=== PATIENT | female | born 1985 | race Asian ===

== ENCOUNTER 2016-11-04 19:01 | Emergency (ER) | payer OTHER ==
[~2016-11-04] VITALS: Ht 167.6 cm; Wt 89.4 kg
[~2016-11-04 19:01] MED LIST: ACET500C5 PO; AZIT250T94 PO; BEN25 PO; CEPH-443 PO; D-ME473S18 PO; ERYT1OIN6 BOTH EYES; HYDR-3498 PO; IBUP-1542 PO; NAPR-260 PO; NITR-58 PO; ONDA4TAB14 PO; PRED50TA PO
[2016-11-04 19:09] VITALS: Ht 167.6 cm; Wt 89.4 kg
--- NOTE | 2016-11-04 20:14 | ERD ---
ER Documentation Chief Complaint Date/Time DATE: 11/04/16 TIME: 20:08 Chief Complaint l leg pain for past week, also co cough, runny nose HPI 31 y/o female presents to ED for left leg pain for more than a week. Pain was described as sharp that starts on her "left butt that extends down to my left lower leg." She also complains of productive cough and congestion for less than a week. Denies headache, loss of consciousness, dizziness, blurry vision, changes in vision, photophobia, ear pain, throat pain, difficulty swallowing, neck pain, shoulder pain, chest pain, cough, hemoptysis, abdominal pain, back pain, loss of appetite, nausea, vomiting, hematochezia, diarrhea, constipation, urinary symptoms, , the possibility of being , bladder and bowel incontinences, extremity weakness, extremity tenderness, numbness or tingling sensation, difficulty walking, injury/falls, trauma, recent travel, recent exposure to illness, recent antibiotic use in the last 3 months, fever, chills. Allergy: NKA PMH: Hypertension. Family medical history: Denies family history of cardiac disease, heart attack before the age of 50, sudden before age 50, stroke, high cholesterol. AO LMP: 10/25/2016 Medications: Hydrochlorothiazide. Stated that she did not take her dose today. Surgery: Denies. Primary Social History: Works as a STERILIZER OPERATOR. Denies smoking, use of alcohol, use of illegal drugs. ROS All systems reviewed and are negative except as per history of present illness. Medications Home Meds Active Scripts Cyclobenzaprine Hcl* (Cyclobenzaprine Hcl*) 10 Mg Tablet, 10 MG PO TID, #15 TAB Prov:NADEEM STEPHENSON F 11/04/16 Ibuprofen* (Motrin*) 800 Mg Tab, 800 MG PO Q6H Y for PAIN AND OR ELEVATED TEMP, #30 TAB Prov:SARWATILANADEEM SEVILLA F 11/04/16 Amoxicillin/Potassium Clav (Amox-Clav 875-125 mg Tablet) 875-125 mg Tab, 1 TAB PO BID for 7 Days, #14 TAB Prov:NADEEM STEPHENSON F 11/04/16 Acetaminophen* (Tylophen*) 500 Mg Capsule, 2 CAP PO Q8H Y for PAIN AND OR ELEVATED TEMP, #20 CAP Prov:JORGE GARCIA 09/07/16 Dextromethorphan Hb-Promethazine Hcl (Promethazine DM Syrup) 473 Ml Syrup, 5 ML PO Q6 Y for COUGH for 3 Days, ML Prov:JORGE GARCIA Nelida 09/07/16 Azithromycin* (Zithromax*) 250 Mg Tablet, 250 MG PO .ZPACK DIRECTED, #6 TAB TAKE 500 MG (2 TABS) THE FIRST DAY THEN 250 MG (1 TAB) DAYS 2-5 Prov:JORGE GARCIA 09/07/16 Ondansetron (Ondansetron Odt) 4 Mg Tab.rapdis, 4 MG PO Q6H Y for NAUSEA AND/OR VOMITING, #10 TAB Prov:AMI COLIN PA-C 08/09/16 Cephalexin* (Keflex*) 500 Mg Capsule, 500 MG PO QID for 7 Days, CAP Prov:AMI COLIN PA-C 08/09/16 Nitrofurantoin Monohyd Macrocr* (Macrobid*) 100 Mg Capsr, 100 MG PO BID for 14 Days, CAP Prov:MIRIAN LIZARRAGA PA-C 07/07/16 Ibuprofen* (Motrin*) 600 Mg Tab, 600 MG PO Q6, #30 TAB Prov:MIRIAN LIZARRAGA PA-C 07/07/16 Erythromycin (Erythromycin Opth) 3.5 Gm Oint..gm., 1 APPLIC BOTH EYES QID for 7 Days, EA Prov:DINAH JUNE PA-C 01/23/16 Prednisone* (Prednisone*) 50 Mg Tablet, 50 MG PO DAILY, #5 TAB Prov:DINAH JUNE PA-C 01/08/16 Diphenhydramine Hcl* (Benadryl*) 25 Mg Cap, 25 MG PO Q6, #30 CAP Prov:DINAH JUNE PA-C 01/08/16 Naproxen* (Naprosyn*) 500 Mg Tablet, 500 MG PO BID Y for PAIN AND/OR INFLAMMATION, #30 TAB Prov:MIRIAN LIZARRAGA PA-C 12/17/15 Hydrocodone Bit-Acetaminophen* ([place]*) 5-325 Mg Tab, 1 TAB PO Q6 Y for PAIN, # 7 TAB Prov:MIRIAN LIZARRAGA PA-C 12/17/15 Ibuprofen* (Motrin*) 600 Mg Tab, 600 MG PO TID, #30 TAB Prov:ANA REYNOSO MD 11/08/15 Allergies Allergies: Coded Allergies: No Known Allergy (Unverified , 01/23/16) PMhx/Soc History of Surgery: No Anesthesia Reaction: No Hx Neurological Disorder: No Hx Respiratory Disorders: No Hx Cardiac Disorders: Yes (HTN) Hx Psychiatric Problems: No Hx Miscellaneous Medical Probl: Yes (Inguinal hernia) Hx Alcohol Use: No Hx Substance Use: No Hx Tobacco Use: No Physical Exam Vitals Vital Signs Date Time Temp Pulse Resp B/P Pulse Ox O2 Delivery O2 Flow Rate FiO2 11/04/16 21:02 98.1 80 17 190/80 98 Room Air 11/04/16 19:09 98.3 77 18 144/84 98 Physical Exam CONSTITUTIONAL: Well-appearing; well-nourished; in no apparent distress. HEAD: Normocephalic; atraumatic. EYES: Conjunctiva clear, sclera non-icteric, EOM intact. PERRL. No pain on eye movement. Ears: Hearing intact. EACs clear, TMs non-bulging, non-inflamed, translucent & mobile, ossicles normal appearance, No obstructions, no erythema, no discharges Nose: No obstructions. No polyps. No external lesions. Mucosa inflamed. No external lesions, septum and turbinates normal. No rhinorrhea. No discharges. Frontal sinus is tender to palpation. Maxillary sinus is tender to palpation. MOUTH: Moist mucous membranes, no lesion, no obstructions, no vesicles, no thrush, patent airway Throat: Uvula in midline. Right tonsil is +2 with erythema, no exudate. Left tonsil is +2 with erythema, no exudate. Tolerating secretions well. Good gag reflex. Patent airway. Neck: Supple, without lesions, bruits, or adenopathy. No mass. Thyroid non- enlarged and non-tender to palpation. Good and full range of motion of neck and spine without pain and discomfort. CHEST: Symmetrical chest. Respirations even and not labored. No retractions noted. CARDIOVASCULAR: Normal S1, S2. RRR. No murmurs, gallops. RESPIRATORY: Normal chest excursion with respiration; breath sounds clear and equal bilaterally; no wheezes, rhonchi, or rales. Breathing even and unlabored. Speaking in clear, full, and complete sentences w/ ease. ABDOMEN: Normal bowel sounds normal. Soft, round, non-distended, non-guarding, no tenderness, no rebound, no organomegaly, no masses, no pulsating abdominal mass. No hernia. No peritoneal signs. : No CVA tenderness. BACK: Symmetrical shoulder. Spine is midline without deformity, tenderness. No evidence of trauma or deformity. PELVIS: Stable pelvis. No evidence of trauma or deformity. MUSCULOSKELETAL: Normal gait and station. No misalignment, asymmetry, crepitation, defects, tenderness, masses, effusions, decreased range of motion, instability, atrophy or abnormal strength or tone in the head, neck, spine, ribs , pelvis or extremities. Left straight leg test is positive. Left cross/ straight leg test is positive. Right straight leg test is negative. Right cross/straight leg test is negative. No neurovascular deficits. No calf tenderness. NEUROVASCULAR: Distal pulses are present. Pedal pulse are present, equal, and normal. Capillary refills are < 2 seconds. NEUROLOGIC: Alert and oriented x4. Speaks full and clear sentences. Cranial Nerves II-XII normal. Sensation to pain, touch, and proprioception normal. Grossly unremarkable. No neurologic deficits. Romberg test is negative. PSYCHOLOGICAL: The patients mood and manner are appropriate. No hallucinations , delusions. Not SI. Not HI. Has the capacity to decide for self SKIN: Normal for age and ethnicity; warm; dry; good turgor; no apparent lesions or exudates. No rashes, hives, discoloration. Intact. Results 24 hrs Laboratory Tests Test 11/04/16 20:29 Bedside Urine Blood 2+ Bedside Urine Glucose (UA) Negative Bedside Urine Ketones (LAB) Negative Bedside Urine Leukocyte Esterase (L 3+ Bedside Urine Nitrite (LAB) Negative Bedside Urine Protein (LAB) Trace Bedside Urine pH (LAB) 6.5 Current Medications Medications (Trade) Dose Ordered Sig/Yariel Route PRN Reason Start Time Stop Time Status Last Admin Dose Admin Ketorolac Tromethamine (Toradol) 30 mg ONCE STAT IM 11/04/16 20:15 11/04/16 20:16 DC 11/04/16 20:31 Procedures/MDM Examination: Please see physical examination. Disease process, medical treatment was explained to the patient. She verbalized understanding and agreed with the diagnostic tests, medical treatment, and follow-up care. POC urine : Negative. Urine dip: Reviewed. Treatment: Toradol. Re-evaluation: Relieved of pain. No CVA tenderness. Ambulatory with steady gait. No neurovascular deficit. No neurological deficits. Consultation: None. Differential diagnosis: Pneumonia versus bronchitis versus sinusitis versus upper respiratory infection versus pyelonephritis versus urinary tract infection versus low back strain versus low back pain versus sciatica Medical decision makin31 y/o female presents to ED for left leg pain for more than a week. Pain was described as sharp that starts on her "left butt that extends down to my left lower leg." She also complains of productive cough and congestion for less than a week. Patient's complaint, patient history about her complaint, my physical findings are consistent with final diagnosis of sinusitis, urinary tract infection, sciatica. Medications prescribed are the following: Augmentin. Motrin. Flexeril. Patient and family member are made aware of the side effects and adverse reactions of the medications prescribed. Instructed on when to seek emergent and medical attention in case allergic/anaphylactic reactions or severe side effects and or adverse reactions to medications. Patient and family member verbalized understanding. Patient instructed Instructed to follow-up with his PCP in 24-48 hours. Verbalized understanding. She also agreed with follow-up care. Instructed to Call 911 for chest pain, shortness of breath. Advised to come back here in ED as soon as possible for severity of symptoms which includes but not limited to: any new symptoms; shortness of breath/difficulty of breathing; cardiovascular changes; severe gastrointestinal symptoms; signs and symptoms of bleeding and or infection; signs of compartment syndrome/neurovascular changes; neurological changes/deficits. Patient and family member verbalized understanding. Upon discharge, patient is alert and oriented x 4, speaks full and clear sentences, denies pain, has no neurological deficits, has no neurovascular deficits, difficulty of breathing. Breathing even and unlabored. Lung sounds are clear to auscultation. Not in distress. She denies headache, dizziness/ blurry vision, neck pain/neck stiffness, chest pain, shoulder pain, back pain, numbness or tingling sensation, unilateral weakness. States that she will take her hydrochlorothiazide as soon as she gets home tonight. Appears comfortable. Ambulatory with steady gait. Appears satisfied with care provided here in ED. Departure Diagnosis: Primary Impression: Sinusitis, acute maxillary Recurrence: not specified as recurrent Qualified Code: J01.00 - Acute maxillary sinusitis, recurrence not specified Additional Impressions: Sinusitis, acute frontal Recurrence: not specified as recurrent Qualified Code: J01.10 - Acute frontal sinusitis, recurrence not specified UTI (urinary tract infection) Urinary tract infection type: site unspecified Hematuria presence: without hematuria Qualified Code: N39.0 - Urinary tract infection without hematuria, site unspecified Sciatic leg pain Additional Instructions: Follow-up with PCP in the next 24-48 hours. Patient verbalized understanding. Patient agreed with follow-up care. NADEEM STEPHENSON Nov 04, 2016 20:14
[2016-11-04] MEDS ORDERED: KETOROLAC 30 MG INJ IM STA (20:15)
[2016-11-04 20:27] LABS: URINE BLOOD (Dip) POC 2+ (NEGATIVE)
[2016-11-04] MEDS ORDERED: AMOX1TAB10 PO (20:50)
[2016-11-04] MEDS ORDERED: IBUP800T25 PO (20:51)
[2016-11-04] MEDS ORDERED: CYCL-319 PO (20:51)
[2016-11-04 21:02] VITALS: BP 190/80; PULSE 80; RESP 17; TEMP 98.1
== END 2016-11-04 21:05 | disposition home or self-care (01) ==
LOC: FTE 19:01
DX: J01.80 Other acute sinusitis (principal); I10 Essential (primary) hypertension; N39.0 Urinary tract infection, site not specified; M54.32 Sciatica, left side
CPT/HCPCS: 81003; 96372; J1885

== ENCOUNTER 2016-11-23 17:47 | Emergency (ER) | payer OTHER ==
[~2016-11-23] VITALS: Wt 90.6 kg
[~2016-11-23 17:47] MED LIST changes: +AMOX1TAB10 PO; +CYCL-319 PO; +IBUP800T25 PO
[2016-11-23 22:04] LABS: URINE BLOOD (Dip) POC 1+ (NEGATIVE)
[2016-11-23] MEDS ORDERED: DOXY100T20 PO (22:26)
[2016-11-23] MEDS ORDERED: CEFTRIAXONE 250 MG INJ IM ONE (22:30)
--- NOTE | 2016-11-23 22:48 | ERD ---
ER Documentation Chief Complaint Date/Time DATE: 11/23/16 TIME: 22:48 Chief Complaint GENITAL AREA ITCHING AND DISCHARGE NO BLEEDING NO FEVERS . NO DYSURIA HPI 31-year-old female presents with chief complaint of vaginal pruritus 3 days. Associated symptoms include white vaginal discharge. She denies vaginal bleeding, dysuria, fever, abdominal pain, and nausea/vomiting. She has not tried any [id number] medications for relief. Rates her discomfort an 8 out of 10 in severity. ROS All systems reviewed and are negative except as per history of present illness. Medications Home Meds Active Scripts Doxycycline Hyclate* (Doxycycline Hyclate*) 100 Mg Tablet.dr, 100 MG PO BID for 14 Days, #28 TAB Prov:Anabelle Person PA-C 11/23/16 Cyclobenzaprine Hcl* (Cyclobenzaprine Hcl*) 10 Mg Tablet, 10 MG PO TID, #15 TAB Prov:NADEEM STEPHENSON 11/04/16 Ibuprofen* (Motrin*) 800 Mg Tab, 800 MG PO Q6H Y for PAIN AND OR ELEVATED TEMP, #30 TAB Prov:SARWATILANADEEM SEVILLA 11/04/16 Amoxicillin/Potassium Clav (Amox-Clav 875-125 mg Tablet) 875-125 mg Tab, 1 TAB PO BID for 7 Days, #14 TAB Prov:BRITTON STEPHENSONMAMIE F 11/04/16 Acetaminophen* (Tylophen*) 500 Mg Capsule, 2 CAP PO Q8H Y for PAIN AND OR ELEVATED TEMP, #20 CAP Prov:JORGE GARCIA 09/07/16 Dextromethorphan Hb-Promethazine Hcl (Promethazine DM Syrup) 473 Ml Syrup, 5 ML PO Q6 Y for COUGH for 3 Days, ML Prov:JORGE GARCIA 09/07/16 Azithromycin* (Zithromax*) 250 Mg Tablet, 250 MG PO .JENNIFER DIRECTED, #6 TAB TAKE 500 MG (2 TABS) THE FIRST DAY THEN 250 MG (1 TAB) DAYS 2-5 Prov:JORGE GARCIA 09/07/16 Ondansetron (Ondansetron Odt) 4 Mg Tab.rapdis, 4 MG PO Q6H Y for NAUSEA AND/OR VOMITING, #10 TAB Prov:AMI COLIN PA-C 08/09/16 Cephalexin* (Keflex*) 500 Mg Capsule, 500 MG PO QID for 7 Days, CAP Prov:AMI COLIN PA-C 08/09/16 Nitrofurantoin Monohyd Macrocr* (Macrobid*) 100 Mg Capsr, 100 MG PO BID for 14 Days, CAP Prov:MIRIAN LIZARRAGA PA-C 07/07/16 Ibuprofen* (Motrin*) 600 Mg Tab, 600 MG PO Q6, #30 TAB Prov:MIRIAN LIZARRAGA PA-C 07/07/16 Erythromycin (Erythromycin Opth) 3.5 Gm Oint..gm., 1 APPLIC BOTH EYES QID for 7 Days, EA Prov:DINAH JUNE PA-C 01/23/16 Prednisone* (Prednisone*) 50 Mg Tablet, 50 MG PO DAILY, #5 TAB Prov:DINAH JUNE PA-C 01/08/16 Diphenhydramine Hcl* (Benadryl*) 25 Mg Cap, 25 MG PO Q6, #30 CAP Prov:DINAH JUNE PA-C 01/08/16 Naproxen* (Naprosyn*) 500 Mg Tablet, 500 MG PO BID Y for PAIN AND/OR INFLAMMATION, #30 TAB Prov:MIRIAN LIZARRAGA PA-C 12/17/15 Hydrocodone Bit-Acetaminophen* ([place]*) 5-325 Mg Tab, 1 TAB PO Q6 Y for PAIN, # 7 TAB Prov:MIRIAN LIZARRAGA PA-C 12/17/15 Ibuprofen* (Motrin*) 600 Mg Tab, 600 MG PO TID, #30 TAB Prov:ANA REYNOSO MD 11/08/15 Allergies Allergies: Coded Allergies: No Known Allergy (Unverified , 01/23/16) PMhx/Soc Medical and Surgical Hx: pt denies Surgical Hx History of Surgery: No Anesthesia Reaction: No Hx Neurological Disorder: No Hx Respiratory Disorders: No Hx Cardiac Disorders: Yes (HTN) Hx Psychiatric Problems: No Hx Miscellaneous Medical Probl: Yes (Inguinal hernia) Hx Alcohol Use: No Hx Substance Use: No Hx Tobacco Use: No Physical Exam Vitals Vital Signs Date Time Temp Pulse Resp B/P Pulse Ox O2 Delivery O2 Flow Rate FiO2 11/23/16 18:11 98.5 92 21 150/94 98 Physical Exam GENERAL: Non-toxic. No apparent signs of distress. LUNGS: Clear to auscultation. No accessory muscle use. No wheezing, no crackles. No signs or symptoms of respiratory distress. HEART: Regular rate and rhythm. No murmurs, clicks, rubs or gallops. ABDOMEN: Soft, nontender and nondistended. Bowel sounds positive. No rebound or guarding. No gross peritoneal signs. No Saldana or McBurney point tenderness. No gross masses. BACK: No midline tenderness, no costovertebral tenderness. : No genital warts or vesicular lesions, labia appear normal, there is yellow mucoid discharge in the vaginal canal and from the cervical os, patient is mild pain with motion of cervix. No adnexal masses or tenderness to palpation. SKIN: There is no apparent rash, petechiae, erythema or swelling. Good skin turgor. Results 24 hrs Laboratory Tests Test 11/23/16 22:02 Bedside Urine Blood 1+ Bedside Urine Glucose (UA) Negative Bedside Urine Ketones (LAB) Negative Bedside Urine Leukocyte Esterase (L 1+ Bedside Urine Nitrite (LAB) Negative Bedside Urine Protein (LAB) 1+ Bedside Urine pH (LAB) 7.0 Current Medications Medications (Trade) Dose Ordered Sig/Yariel Route PRN Reason Start Time Stop Time Status Last Admin Dose Admin Ceftriaxone Sodium (Rocephin) 250 mg ONCE ONCE IM 11/23/16 22:30 11/23/16 22:31 DC 11/23/16 22:50 Procedures/MDM Based on physical exam findings and patient's symptoms I explained that I would be treating her for bacterial vaginosis, which is commonly associated with mucoid discharge and vaginal pruritus. In addition due to patient's mild pain with motion of her cervix I will be ordering 250 mg IM Rocephin to be given in the ER. Patient appears in no acute distress, is afebrile with stable vital signs. She denies dysuria. At this time low suspicion for pyelonephritis, sepsis, syphilis, genital warts, and herpes. Gonorrhea and Chlamydia culture were sent. Expect the patient that be contacting her if results came back positive. Provided prescription for doxycycline. At this time she stable for discharge and outpatient management. Given list of [facility] clinic to follow-up with. Return precautions discussed. Departure Diagnosis: Primary Impression: Vaginal itching Condition: Good Patient Instructions: Vaginal Infection: Bacterial Vaginosis Referrals: [facility] [place] [address] [facility] [address] [place] [address] OFFICE FAX , [address] [place] [address] [address] [address] [place] [address] [address] [facility] [address], [address], [facility] [address] [address] [facility] [address] [place] [address] [facility] [address] [place] [address] [address] [facility] [id number] - [address] PEAR[place] CARRI[address] [facility]. [address], [facility] [address] [address] [facility] [address] [facility]. [address], [place] [address] [address] [facility] [address] [place], [place] [id number] Additional Instructions: Call your primary care doctor TOMORROW for an appointment during the next 1-2 days.See the doctor sooner or return here if your condition worsens before your appointment time. Anabelle Person PA-C Nov 23, 2016 22:48
== END 2016-11-23 23:06 | disposition home or self-care (01) ==
LOC: FTE 17:47
DX: N89.8 Other specified noninflammatory disorders of vagina (principal); I10 Essential (primary) hypertension
CPT/HCPCS: 81003; 87070; 96372; J0696; Z7502

== ENCOUNTER 2017-04-04 17:25 | Emergency (ER) | payer OTHER ==
[~2017-04-04] VITALS: Ht 160 cm; Wt 96.4 kg
[~2017-04-04 17:25] MED LIST changes: +DOXY100T20 PO
[2017-04-04 17:36] VITALS: Ht 160 cm; Wt 96.4 kg
[2017-04-04] MEDS ORDERED: HYDROCHLOROTHIAZIDE 25 MG TAB PO ONE (20:00)
--- NOTE | 2017-04-04 20:39 | RADRPT ---
PROCEDURE: Ultrasound of the right breast CLINICAL INDICATION: Pain. TECHNIQUE: Real time ultrasound examination right breast was performed. COMPARISON: None. FINDINGS: No focal mass or lesion is identified. There is no abnormal vascularity. No grossly dilated ducts are identified. IMPRESSION: Negative limited ultrasound examination of the right breast. RPTAT: HMVK .Jose Rice MD, Date Time Electronically viewed and signed by .Jose Rice MD, on 04/04/2017 20:38 .K/
[2017-04-04] MEDS ORDERED: ACET325T33 PO (21:04)
[2017-04-04] MEDS ORDERED: HYD25 PO (21:04)
--- NOTE | 2017-04-04 21:11 | ERD ---
ER Documentation Chief Complaint Date/Time DATE: 04/04/17 TIME: 21:07 Chief Complaint right breast pain x 1 week HPI 31-year-old female patient with a past medical history of hypertension presents to the ED complaining of right breast and axillary pain that started intermittently 1 week ago. Reports that she has been taking Advil without relief. States that her last menses was on March 07, 2017. Denies any concerns about being . Denies any chest pain, shortness of breath, nausea, vomiting, wheezing, rashes. ROS All systems reviewed and are negative except as per history of present illness. Medications Home Meds Active Scripts Acetaminophen* (Tylenol*) 325 Mg Tablet, 2 TAB PO Q8 Y for PAIN AND OR ELEVATED TEMP, #20 TAB Prov:NELLY AKHTAR PA-C 04/04/17 Hydrochlorothiazide* (Hydrochlorothiazide*) 25 Mg Tab, 25 MG PO DAILY, #30 TAB Prov:NELLY AKHTAR PA-C 04/04/17 Doxycycline Hyclate* (Doxycycline Hyclate*) 100 Mg Tablet.dr, 100 MG PO BID for 14 Days, #28 TAB Prov:Anabelle Person PA-C 11/23/16 Cyclobenzaprine Hcl* (Cyclobenzaprine Hcl*) 10 Mg Tablet, 10 MG PO TID, #15 TAB Prov:NADEEM STEPHENSON 11/04/16 Ibuprofen* (Motrin*) 800 Mg Tab, 800 MG PO Q6H Y for PAIN AND OR ELEVATED TEMP, #30 TAB Prov:NADEEM STEPHENSON 11/04/16 Amoxicillin/Potassium Clav (Amox-Clav 875-125 mg Tablet) 875-125 mg Tab, 1 TAB PO BID for 7 Days, #14 TAB Prov:NADEEM STEPHENSON 11/04/16 Acetaminophen* (Tylophen*) 500 Mg Capsule, 2 CAP PO Q8H Y for PAIN AND OR ELEVATED TEMP, #20 CAP Prov:JORGE GARCIA 09/07/16 Dextromethorphan Hb-Promethazine Hcl (Promethazine DM Syrup) 473 Ml Syrup, 5 ML PO Q6 Y for COUGH for 3 Days, ML Prov:JORGE GARCIA 09/07/16 Azithromycin* (Zithromax*) 250 Mg Tablet, 250 MG PO .JENNIFER DIRECTED, #6 TAB TAKE 500 MG (2 TABS) THE FIRST DAY THEN 250 MG (1 TAB) DAYS 2-5 Prov:JORGE GARCIA 09/07/16 Ondansetron (Ondansetron Odt) 4 Mg Tab.rapdis, 4 MG PO Q6H Y for NAUSEA AND/OR VOMITING, #10 TAB Prov:AMI COLIN PA-C 08/09/16 Cephalexin* (Keflex*) 500 Mg Capsule, 500 MG PO QID for 7 Days, CAP Prov:AMI COLIN PA-C 08/09/16 Nitrofurantoin Monohyd Macrocr* (Macrobid*) 100 Mg Capsr, 100 MG PO BID for 14 Days, CAP Prov:MIRIAN LIZARRAGA PA-C 07/07/16 Ibuprofen* (Motrin*) 600 Mg Tab, 600 MG PO Q6, #30 TAB Prov:MIRIAN LIZARRAGA PA-C 07/07/16 Erythromycin (Erythromycin Opth) 3.5 Gm Oint..gm., 1 APPLIC BOTH EYES QID for 7 Days, EA Prov:DINAH JUNE PA-C 01/23/16 Prednisone* (Prednisone*) 50 Mg Tablet, 50 MG PO DAILY, #5 TAB Prov:DINAH JUNE PA-C 01/08/16 Diphenhydramine Hcl* (Benadryl*) 25 Mg Cap, 25 MG PO Q6, #30 CAP Prov:DIANH JUNE PA-C 01/08/16 Naproxen* (Naprosyn*) 500 Mg Tablet, 500 MG PO BID Y for PAIN AND/OR INFLAMMATION, #30 TAB Prov:MIRIAN LIZARRAGA PA-C 12/17/15 Hydrocodone Bit-Acetaminophen* (Concord*) 5-325 Mg Tab, 1 TAB PO Q6 Y for PAIN, # 7 TAB Prov:MIRIAN LIZARRAGA PA-C 12/17/15 Ibuprofen* (Motrin*) 600 Mg Tab, 600 MG PO TID, #30 TAB Prov:ANA REYNOSO MD 11/08/15 Allergies Allergies: Coded Allergies: No Known Allergy (Unverified , 04/04/17) PMhx/Soc Medical and Surgical Hx: pt denies Surgical Hx History of Surgery: No Anesthesia Reaction: No Hx Neurological Disorder: No Hx Respiratory Disorders: No Hx Cardiac Disorders: No Hx Psychiatric Problems: No Hx Miscellaneous Medical Probl: No Hx Alcohol Use: No Hx Substance Use: No Hx Tobacco Use: No Smoking Status: Never smoker Physical Exam Vitals Vital Signs Date Time Temp Pulse Resp B/P Pulse Ox O2 Delivery O2 Flow Rate FiO2 04/04/17 19:59 94 180/93 04/04/17 17:36 98.4 89 20 182/110 99 Physical Exam Const: [id number], well-nourished. In no acute distress. Head: Atraumatic, normocephalic Eyes: Normal Conjunctiva without injection. No purulent discharge. PERRL. EOMI ENT: Normal external ear. Ear canal without erythema. Tympanic membrane pearly andre without effusion or bulging. Nasal canal clear with normal turbinates. Moist oropharynx without tonsillar exudates. Non-erythematous pharynx. Uvula midline. No drooling. No trismus. Neck: Full range of motion. No meningismus. No cervical lymphadenopathy. Resp: Clear to auscultation bilaterally. No wheezing, rhonchi, rales, or crackles. No accessory muscle use. No retractions. Cardio: Regular rate and rhythm. No murmurs, rubs or gallops. Breast: Tenderness palpation of the right breast region with no masses palpated. No rashes. No areolar discharge. No fluctuance or induration. Abd: Soft, non tender, non distended. Normal bowel sounds. No palpable masses. No rebound tenderness. No guarding. Skin: No petechiae or rashes Back: No midline tenderness. No CVA tenderness. Ext: No cyanosis, or edema. Neur: Awake and alert. Psych: Normal Mood and Affect Results 24 hrs Current Medications Medications (Trade) Dose Ordered Sig/Yariel Route PRN Reason Start Time Stop Time Status Last Admin Dose Admin Hydrochlorothiazide (Hydrochlorothiazide) 25 mg ONCE ONCE PO 04/04/17 20:00 04/04/17 20:01 DC 04/04/17 19:59 Procedures/MDM This is a 31-year-old female patient with no significant past medical history presents the ED complaining of right breast pain that started intermittently 1 week ago. Patient has a blood pressure of 182/110. An EKG, breast ultrasound was ordered to further evaluate patient. Patient was given HCTZ 25 mg since that is what she takes and she ran out of her medication. EKG reviewed and interpreted by Dr. Gandhi Rate/Rhythm: [88 bpm, Normal Sinus Rhythm] No ectopy, no ST elevations, normal axis. QRS, ST, T-waves: [No changes consistent w/ acute ischemia] Impression: [No evidence of ischemia or arrhythmia] Low suspicion for acute myocardial infarction, pneumothorax, pneumonia, cardiac tamponade, pulmonary embolism, AAA, aortic dissection, Boerhaave's syndrome, cardiac dysrhythmias,meningitis, intracranial bleed, seizure, stroke, TIA or other emergent conditions. Discharge medications: HCTZ, Tylenol Follow up with primary care physician in 1-2 days. Instructed patient to return to the ED sooner for any worsening symptoms. Patient's questions were answered. Patient understood and agreed with discharge plan. Patient discharged stable. Departure Diagnosis: Primary Impression: Breast pain Additional Impression: Encounter for medication refill Condition: Stable Patient Instructions: Breast Anatomy, Breast Self-Exam (BSE), High Blood Pressure (Hypertension) Referrals: [facility] YOU HAVE RECEIVED A MEDICAL SCREENING EXAM AND THE RESULTS INDICATE THAT YOU DO NOT HAVE A CONDITION THAT REQUIRES URGENT TREATMENT IN THE EMERGENCY DEPARTMENT. FURTHER EVALUATION AND TREATMENT OF YOUR CONDITION CAN WAIT UNTIL YOU ARE SEEN IN YOUR DOCTORS OFFICE WITHIN THE NEXT 1-2 DAYS. IT IS YOUR RESPONSIBILITY TO MAKE AN APPOINTMENT FOR FOLOW-UP CARE. IF YOU HAVE A PRIMARY DOCTOR --you should call your primary doctor and schedule an appointment IF YOU DO NOT HAVE A PRIMARY DOCTOR YOU CAN CALL OUR PHYSICIAN REFERRAL HOTLINE AT IF YOU CAN NOT AFFORD TO SEE A PHYSICIAN YOU CAN CHOSE FROM THE FOLLOWING [facility] [address] [facility] [address] [facility] [address] [facility] [address] [facility]. [facility] [address] [facility]. [facility]. [address] [facility] YOU HAVE RECEIVED A MEDICAL SCREENING EXAM AND THE RESULTS INDICATE THAT YOU DO NOT HAVE A CONDITION THAT REQUIRES URGENT TREATMENT IN THE EMERGENCY DEPARTMENT. FURTHER EVALUATION AND TREATMENT OF YOUR CONDITION CAN WAIT UNTIL YOU ARE SEEN IN YOUR DOCTORS OFFICE WITHIN THE NEXT 1-2 DAYS. IT IS YOUR RESPONSIBILITY TO MAKE AN APPOINTMENT FOR FOLOW-UP CARE. IF YOU HAVE A PRIMARY DOCTOR --you should call your primary doctor and schedule and appointment IF YOU DO NOT HAVE A PRIMARY DOCTOR YOU CAN CALL OUR PHYSICIAN REFERRAL HOTLINE AT . IF YOU CAN NOT AFFORD TO SEE A PHYSICIAN YOU CAN CHOSE FROM THE FOLLOWING [facility] INSTITUTIONS: [facility] [address] [place] [address] [facility] [address] [place] [address] [facility] [address] [place] [address] [facility] URGENT CARE/SPECIALTIES [facility] [place] [address] [facility] [address] [place] [address] OFFICE FAX MERLY JAIMES [address] [place] [address] [address] [address] [place] [address] [address] [facility] [facility] [address] [facility], [address], [facility] [address] [address] [place] [address] [facility] [address] [place] [address] [phone] [facility] [address] - CARRILLO MONDRAGON [address], [facility] [address] [address] MOORE [address] [address] [facility] [address], [facility] [id number] [address] [place] [address] [facility] Hours: 8:00 am - 5:00 pm [facility] () Usted se swan hecho un examen mdico de control que le indica que no est en adrianna condicin que requiera tratamiento urgente en el Departamento de Emergencia. Un estudio ms profundo y el tratamiento de barba condicin pueden esperar sin ningn riesgo hasta que usted sea atendida/o en el consultorio de barba mdico o adrianna cl jessica. Es responsabilidad suya arreglar adrianna geraldo para el seguimiento del frida. MANEJO DE CONDICIONES NO URGENTES EN EL FUTURO 1) Si usted tiene un mdico de atencin primaria: Usted debera llamar a barba mdico de atencin primaria antes de venir al departamento de emergencia. Despus de las horas de consultorio, barba doctor o barba asociado/a est disponible por telfono. El mdico o enfermero de spencer en el servicio telefnico puede asesorarle por donaldo medio para atender el problema, o frida contrario se puede programar adrianna geraldo. 2) Si usted no tiene un mdico de atencin primaria: Llame al mdico o condado institucions de referencia que aparece abajo wendy las horas de consultorio para hacer adrianna geraldo para que le vean. SI USTED NO PUEDE PAGAR PARA JEFFRY UN MEDICO puede ir a: [facility] [address] [place] [address] [facility] [address] [place] [address] [facility] [address] [place] [address] [facility] [address] [place] [address] Additional Instructions: Call your primary care doctor TOMORROW for an appointment during the next 1-2 days for management of your hypertension and referral to [facility] for your breast pain.See the doctor sooner or return here if your condition worsens before your appointment time. NELLY AKHTAR PA-C Apr 04, 2017 21:11
[2017-04-04 21:35] VITALS: PULSE 88
[2017-04-04 21:58] VITALS: BP 198/84; RESP 20
== END 2017-04-04 21:59 | disposition home or self-care (01) ==
LOC: FTE 17:25
DX: N64.4 Mastodynia (principal)
CPT/HCPCS: 76642; 93005; Z7502; Z7610

== ENCOUNTER 2017-09-30 14:31 | Emergency (ER) | END 2017-09-30 15:30 | disposition home or self-care (01) ==

== ENCOUNTER 2017-11-20 12:04 | Emergency (ER) | END 2017-11-20 15:22 | disposition left against medical advice (07) ==

== ENCOUNTER 2018-01-20 17:34 | Emergency (ER) | END 2018-01-20 20:53 | disposition home or self-care (01) ==

== ENCOUNTER 2018-03-18 11:26 | Emergency (ER) | END 2018-03-18 13:50 | disposition home or self-care (01) ==

== ENCOUNTER 2018-04-19 19:02 | Emergency (ER) | END 2018-04-20 | disposition home or self-care (01) ==

== ENCOUNTER 2018-09-16 17:51 | Emergency (ER) | payer SELFPAY ==
[~2018-09-16] VITALS: Ht 172.7 cm; Wt 100.1 kg
[~2018-09-16 17:51] MED LIST changes: -ACET500C5 PO; -AMOX1TAB10 PO; -AZIT250T94 PO; -BEN25 PO; +BEN50 PO; -CEPH-443 PO; +CIPR500T4 PO; -CYCL-319 PO; -D-ME473S18 PO; -DOXY100T20 PO; -ERYT1OIN6 BOTH EYES; -HYDR-3498 PO; +HYDR25TA6 PO; -IBUP-1542 PO; -IBUP800T25 PO; -NAPR-260 PO; -ONDA4TAB14 PO; +PHEN-538 PO; -PRED50TA PO
[2018-09-16 17:54] VITALS: BP 192/106; PULSE 112; RESP 20; Ht 172.7 cm; Wt 100.1 kg
== END 2018-09-16 21:32 | disposition left against medical advice (07) ==
LOC: FTE 17:51
DX: Z53.21 Procedure and treatment not carried out due to patient leaving prior to being seen by health care provider (principal)

== ENCOUNTER 2018-11-30 14:55 | Emergency (ER) | payer OTHER ==
[~2018-11-30] VITALS: Ht 160 cm; Wt 99.7 kg
[2018-11-30 15:06] VITALS: Ht 160 cm; Wt 99.7 kg
[2018-11-30] MEDS ORDERED: BENA1TAB12 PO (17:35)
[2018-11-30] MEDS ORDERED: CLON-379 PO (17:36)
[2018-11-30 18:29] VITALS: BP 119/66; PULSE 80; RESP 20
--- NOTE | 2018-12-01 00:54 | ERD ---
ER Documentation Chief Complaint Chief Complaint CP since yesterday; neck pain also HPI 33-year-old female with a history of hypertension presenting with chest pain that started early this morning. She states the pain is in the substernal region, aching, worse with deep inspiration, constant, initially an 8 out of 10 but improved now. Patient did take ibuprofen prior to arrival with improvement of her symptoms. 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 Pain is nonradiating. No associated shortness of breath, dizziness, nausea, vomiting, diarrhea, fever or chills. No exogenous es trogen use, control, history of blood clots, recent surgeries, recent immobilization. ROS All systems reviewed and are negative except as per history of present illness. Medications Home Meds Reported Medications Clonidine Hcl* (Clonidine Hcl*) 0.1 Mg Tab, 0.1 MG PO DAILY PRN for BLOOD PRESSURE SUPPORT, TAB 11/30/18 Benazepril-Hydrochlorothiazide (Benazepril-Hydrochlorothiazide) 10-12.5 Mg Tablet, 1 TAB PO BID, #30 TAB 11/30/18 Discontinued Reported Medications Hydrochlorothiazide* (Hydrochlorothiazide*) 25 Mg Tab, 25 MG PO DAILY, #30 TAB 01/20/18 Discontinued Scripts Ciprofloxacin Hcl* (Ciprofloxacin Hcl*) 500 Mg Tablet, 500 MG PO BID for 7 Days, #14 TAB Prov:CARROLL,CHARLIE 04/19/18 Phenazopyridine Hcl* (Pyridium*) 200 Mg Tab, 200 MG PO TID PRN for URINARY PAIN, #6 TAB Prov:CARROLL,CHARLIE 04/19/18 Nitrofurantoin Monohyd Macrocr* (Macrobid*) 100 Mg Capsr, 100 MG PO BID for 5 Days, CAP Prov:HENRIQUE YAÑEZ PA-C 03/18/18 Diphenhydramine Hcl* (Benadryl*) 50 Mg Cap, 50 MG PO Q6H PRN for ITCHING/RASH, #30 CAP Prov:GILDA ASHLEY MD 01/20/18 Allergies Allergies: Coded Allergies: No Known Allergy (Unverified , 11/30/18) PMhx/Soc History of Surgery: No Anesthesia Reaction: No Hx Neurological Disorder: No Hx Respiratory Disorders: No Hx Cardiac Disorders: Yes (HTN) Hx Psychiatric Problems: No Hx Miscellaneous Medical Probl: No Hx Alcohol Use: No Hx Substance Use: No Hx Tobacco Use: No Smoking Status: Never smoker FmHx Family History: No diabetes Physical Exam Vitals Vital Signs Date Temp Pulse Resp B/P (MAP) Pulse Ox O2 O2 Flow FiO2 Time Delivery Rate 11/30/18 98.5 80 20 119/66 100 Room Air 18:29 (83) 11/30/18 98.2 85 20 134/64 100 Room Air 16:35 (87) 11/30/18 98.2 91 20 134/73 99 15:06 (93) Physical Exam Const: No acute distress Head: Atraumatic Eyes: Normal Conjunctiva ENT: Normal External Ears, Nose and Mouth. Neck: Full range of motion. No meningismus. Chest wall: Tenderness to palpation on the borders of the sternum bilaterally with no crepitus. Reproduces pain. Resp: Clear to auscultation bilaterally. Cardio: Regular rate and rhythm, no murmurs. 2+ distal pulses in all 4 extremities Abd: Soft, non tender, non distended. Normal bowel sounds Skin: No petechiae or rashes Back: No midline or flank tenderness Ext: No cyanosis, or edema Neur: Awake and alert Psych: Normal Mood and Affect Result Diagram: 11/30/18 1700 11/30/18 1700 Results 24 hrs Laboratory Tests Test 11/30/18 17:00 White Blood Count 13.1 10^3/ul Red Blood Count 4.90 10^6/ul Hemoglobin 13.0 g/dl Hematocrit 40.0 % Mean Corpuscular Volume 81.6 fl Mean Corpuscular Hemoglobin 26.5 pg Mean Corpuscular Hemoglobin Concent 32.5 g/dl Red Cell Distribution Width 13.1 % Platelet Count 319 10^3/UL Mean Platelet Volume 11.6 fl Immature Granulocytes % 0.700 % Neutrophils % 72.5 % Lymphocytes % 15.1 % Monocytes % 9.8 % Eosinophils % 1.6 % Basophils % 0.3 % Nucleated Red Blood Cells % 0.0 /100WBC Immature Granulocytes # 0.090 10^3/ul Neutrophils # 9.5 10^3/ul Lymphocytes # 2.0 10^3/ul Monocytes # 1.3 10^3/ul Eosinophils # 0.2 10^3/ul Basophils # 0.0 10^3/ul Nucleated Red Blood Cells # 0.0 10^3/ul Sodium Level 144 mmol/L Potassium Level 3.8 mmol/L Chloride Level 103 mmol/L Carbon Dioxide Level 28 mmol/L Anion Gap 13 Blood Urea Nitrogen 16 mg/dl Creatinine 0.61 mg/dl Est Glomerular Filtrat Rate mL/min > 60 mL/min Glucose Level 109 mg/dl Calcium Level 9.8 mg/dl Troponin I < 0.012 ng/ml Procedures/MDM EMERGENT LABS AND DIAGNOSTIC STUDIES: Lab Results above were reviewed and interpreted by me. CBC: no anemia or evidence of infection CMP: No evidence of electrolyte abnormality, renal failure, hypoglycemia Troponin within normal limits, not indicative of cardiac ischemia 12-lead EKG was interpreted by Raffaele Degroot MD: Normal Sinus Rhythm Normal axis Normal intervals No acute ST or T wave changes suggestive of acute ischemia or STEMI. Radiology Results as interpreted by Radiology below were reviewed by Irwin Degroot MD: Chest x-ray shows no acute abnormalities Initial Nursing notes reviewed. Previous Medical Records requested via the Electronic Health Record. EMERGENCY DEPARTMENT COURSE / MEDICAL DECISION MAKING: Patient presents with several hours of constant substernal chest pain worse with deep inspiration. Vitals are unremarkable and she is afebrile and well- appearing on exam. I have a low suspicion for acute coronary syndrome, pulmonary embolism, or aortic dissection. There is no evidence of pneumothorax, pneumonia, or mediastinal abnormality on chest x-ray. Considered pericarditis but this is less likely given no changes on EKG that would be consistent with pericarditis. However given her improvement with NSAIDs, I did recommend she continue this every 6 hours as needed for her chest pain. Return precautions were discussed. Follow-up with PCP was recommended in the next 2-3 days. All questions were answered. Patient was discharged in stable condition. Patient's blood pressure was elevated (>120/80) but appears stable without evidence of hypertensive emergency or urgency. The patient was counseled about the risks of hypertension and urged to pursue outpatient monitoring and therapy within a week with their primary care physician. Departure Diagnosis: Primary Impression: Chest pain Chest pain type: chest pain on breathing Qualified Codes: R07.1 - Chest pain on breathing Condition: Stable Patient Instructions: Chest Pain, Uncertain Cause Referrals: JCARLOS FRASER MD (PCP) Additional Instructions: Return to the ER for any worsening symptoms. Follow-up with your primary care doctor in 2 days. MIRIAN DEGROOT MD Dec 01, 2018 00:54
== END 2018-11-30 18:32 | disposition home or self-care (01) ==
LOC: E/R 14:55
DX: R07.1 Chest pain on breathing (principal); I10 Essential (primary) hypertension
CPT/HCPCS: 36415; 71045; 80048; 84484; 85025; 93005; Z7502

== ENCOUNTER 2019-01-22 16:55 | Emergency (ER) | payer OTHER ==
[~2019-01-22] VITALS: Wt 100.7 kg
[~2019-01-22 16:55] MED LIST changes: -BEN50 PO; +BENA1TAB12 PO; -CIPR500T4 PO; +CLON-379 PO; -HYDR25TA6 PO; -NITR-58 PO; -PHEN-538 PO
[2019-01-22 17:35] VITALS: Wt 100.7 kg
[2019-01-22] MEDS ORDERED: CEPH-443 PO (18:26)
[2019-01-22] MEDS ORDERED: ACET500C5 PO (18:26)
[2019-01-22] MEDS ORDERED: PHEN-538 PO (18:26)
[2019-01-22] MEDS ORDERED: CEPHALEXIN 500 MG CAP PO ONE (18:30)
[2019-01-22] MEDS ORDERED: ACETAMINOPHEN 325 MG TAB PO ONE (18:30)
--- NOTE | 2019-01-22 18:30 | ERD ---
ER Documentation Chief Complaint Chief Complaint dysuria, pelvic, back pains x1wk HPI 33-year-old female presents with a one-week history of dysuria and suprapubic pain. She has low back pain as well. Denies flank pain, fevers, vomiting, right or left or upper abdominal pain. She denies . Denies vaginal discharge. ROS All systems reviewed and are negative except as per history of present illness. Medications Home Meds Active Scripts Acetaminophen* (Tylophen*) 500 Mg Capsule, 1 CAP PO Q6H PRN for PAIN AND OR ELEVATED TEMP, #15 CAP Prov:AMNA RUIZ MD 01/22/19 Phenazopyridine Hcl* (Pyridium*) 200 Mg Tab, 200 MG PO TID PRN for URINARY PAIN, #6 TAB Prov:AMNA RUIZ MD 01/22/19 Cephalexin* (Keflex*) 500 Mg Capsule, 500 MG PO QID for 5 Days, CAP Prov:AMNA RUIZ MD 01/22/19 Reported Medications Clonidine Hcl* (Clonidine Hcl*) 0.1 Mg Tab, 0.1 MG PO DAILY PRN for BLOOD PRESSURE SUPPORT, TAB 11/30/18 Benazepril-Hydrochlorothiazide (Benazepril-Hydrochlorothiazide) 10-12.5 Mg Tablet, 1 TAB PO BID, #30 TAB 11/30/18 Allergies Allergies: Coded Allergies: No Known Allergy (Unverified , 11/30/18) PMhx/Soc History of Surgery: No Anesthesia Reaction: No Hx Neurological Disorder: No Hx Respiratory Disorders: No Hx Cardiac Disorders: Yes (HTN) Hx Psychiatric Problems: No Hx Miscellaneous Medical Probl: No Hx Alcohol Use: No Hx Substance Use: No Hx Tobacco Use: No Smoking Status: Never smoker FmHx Family History: No diabetes, No coronary disease, No other Physical Exam Vitals Vital Signs Date Temp Pulse Resp B/P (MAP) Pulse Ox O2 O2 Flow FiO2 Time Delivery Rate 01/22/19 99.9 100 20 154/86 97 17:35 (108) Physical Exam Const: No acute distress Head: Atraumatic Eyes: Normal Conjunctiva ENT: Normal External Ears, Nose and Mouth. Neck: Full range of motion. No meningismus. Resp: Clear to auscultation bilaterally Cardio: Regular rate and rhythm, no murmurs Abd: Soft, suprapubic tenderness. No tenderness McBurney's point no Saldana sign or rebound. No CVA tenderness. Non distended. Normal bowel sounds Skin: No petechiae or rashes Back: No midline or flank tenderness Ext: No cyanosis, or edema Neur: Awake and alert Psych: Normal Mood and Affect Results 24 hrs Laboratory Tests Test 01/22/19 18:05 Urine Color STRAW Urine Clarity SLIGHTLY CLOUDY Urine pH 8.0 Urine Specific [place] 1.009 Urine Ketones NEGATIVE mg/dL Urine Nitrite NEGATIVE mg/dL Urine Bilirubin NEGATIVE mg/dL Urine Urobilinogen NEGATIVE mg/dL Urine Leukocyte Esterase 2+ Renee/ul Urine Microscopic RBC 2 /HPF Urine Microscopic WBC 10 /HPF Urine Squamous Epithelial Cells FEW /HPF Urine Hemoglobin 1+ mg/dL Urine Glucose NEGATIVE mg/dL Urine Total Protein NEGATIVE mg/dl Current Medications Medications Dose Sig/Yariel Start Time Status Last (Trade) Ordered Route PRN Stop Time Admin Dose Reason Admin 650 mg ONCE ONCE 01/22/19 Acetaminophen PO 18:30 (Tylenol 01/22/19 18:31 Tab) Cephalexin 500 mg ONCE ONCE 01/22/19 (Keflex) PO 18:30 01/22/19 18:31 Procedures/MDM Urine shows white blood cells and leukocyte esterase. hCG negative. Patient was given Keflex, Tylenol and Pyridium. Patient presents with signs and symptoms of uncomplicated cystitis. She does not meet SIRS criteria and has a reassuring abdominal exam. She will be treated with continuation of Keflex, Pyridium Tylenol, instructions for fluids, primary care follow-up and return precautions. Doubt tubo-ovarian abscess. Patient is advised to follow-up with primary doctor return to ER for any worsening symptoms. The patient was stable with no new complaints during the ER course. Clinically, there is no current evidence to suggest meningitis, sepsis, acute abdomen, pneumonia, stroke, acute coronary syndrome, pulmonary embolism, aortic dissection or any other emergent condition appearing to require further evaluation or hospitalization. Patient counseled regarding my diagnostic impression and care plan. Prior to discharge all questions answered. Pt agrees with treatment plan and understands strict return precautions. Pt is instructed to follow up with primary care provider wi thin 24-48 hours. Precautionary instructions provided including instructions to return to the ER if not improving or for any worsening or changing symptoms or concerns. Disclaimer: Inadvertent spelling and grammatical errors are likely due to EHR/dictation software use and do not reflect on the overall quality of patient care. Also, please note that the electronic time recorded on this note does not necessarily reflect the actual time of the patient encounter. Departure Diagnosis: Primary Impression: Dysuria Additional Impression: UTI (urinary tract infection) Urinary tract infection type: acute cystitis Hematuria presence: without hematuria Qualified Codes: N30.00 - Acute cystitis without hematuria Condition: Stable Patient Instructions: Understanding Urinary Tract Infections (UTIs) Referrals: JCARLOS FRASER MD (PCP) Additional Instructions: Urine shows infection and we will treat for this. Recheck for fevers, vomiting, worsening abdominal pain, new worsening symptoms. AMNA RUIZ MD January 22, 2019 18:30
[2019-01-22 19:19] VITALS: BP 149/78; PULSE 102; RESP 20
== END 2019-01-22 19:20 | disposition home or self-care (01) ==
LOC: FTE 16:55
DX: N30.00 Acute cystitis without hematuria (principal); I10 Essential (primary) hypertension
CPT/HCPCS: 81001; 81025; Z7502; Z7610; 99283

== ENCOUNTER 2019-05-28 18:50 | Emergency (ER) | payer OTHER ==
[~2019-05-28] VITALS: Ht 157.5 cm; Wt 101.7 kg
[~2019-05-28 18:50] MED LIST changes: +ACET500C5 PO; +BENZ-6 PO; +CEPH-443 PO; +D-ME473S2 PO; +FLUC150T PO; +IBUP800T48 PO; +NITR-58 PO; +PHEN-538 PO
[2019-05-28 19:01] VITALS: Ht 157.5 cm; Wt 101.7 kg
[2019-05-28] MEDS ORDERED: LIDOCAINE 1% (MPF) 5 ML VIAL INFIL ONE (20:00)
[2019-05-28] MEDS ORDERED: AZITHROMYCIN 500 MG TAB PO ONE (20:00)
[2019-05-28] MEDS ORDERED: CEFTRIAXONE 250 MG INJ IM ONE (20:00)
[2019-05-28 22:23] VITALS: BP 169/93; PULSE 77; RESP 16
== END 2019-05-28 22:24 | disposition home or self-care (01) ==
LOC: FTE 18:50
DX: N76.0 Acute vaginitis (principal); I10 Essential (primary) hypertension; N30.01 Acute cystitis with hematuria; Z20.2 Contact with and (suspected) exposure to infections with a predominantly sexual mode of transmission
CPT/HCPCS: 81001; 84703; 87086; 87210; 87591; J0696; Z7610; 96372